=== PATIENT | female | born 1985 | race African-American/Black ===

== ENCOUNTER 2020-01-18 14:54 | Emergency (ER) | payer BC, SELFPAY ==
[2020-01-18 15:06] VITALS: BP 137/95; PULSE 116; RESP 16; TEMP 37.4; O2SAT 100
--- NOTE | 2020-01-18 15:16 | ED.SKABFB ---
HPI - Skin/Abscess/Foreign Bdy General Chief complaint: Skin/Abscess/Foreign Body Stated complaint: rash/left arm Time Seen by Provider: 01/18/20 15:10 Source: patient and RN notes reviewed Mode of arrival: ambulatory Limitations: no limitations History of Present Illness HPI narrative: Patient presents today complaining of a pruritic rash to the bilateral forearms x1 week. Symptoms have worsened over the past 2 days. States that prior to onset, she was working outside in the yard with her mother, but has no known contact to allergens or irritants. She has been using calamine lotion as well as hydrocortisone without relief. History of eczema. MD complaint: rash Related Data Home Medications Medication Instructions Recorded Confirmed albuterol sulfate INHALATION 01/18/20 budesonide-formoterol [Symbicort] INHALATION 01/18/20 losartan 01/18/20 Allergies Allergy/AdvReac Type Severity Reaction Status Date / Time No Known Allergies Allergy Unverified 05/28/18 11:12 Review of Systems Review of Systems: Narrative: CONSTITUTIONAL: Denies body aches, fever, chills, or sweats. EYES: Denies visual changes, redness, or discharge. ENT: Denies rhinorrhea, congestion, sore throat, or otalgia. CARDIOVASCULAR: Denies chest pain, palpitations, or edema. RESPIRATORY: Denies cough or dyspnea. GASTROINTESTINAL: Denies abdominal pain, nausea, vomiting, or diarrhea. GENITOURINARY: Denies dysuria or hematuria. SKIN: + Pruritic rash to bilateral forearms MUSCULOSKELETAL: Denies back pain, joint pain, or myalgia. NEUROLOGIC: Denies headache, numbness, tingling, or weakness. PSYCH: Denies depression or anxiety. [facility] Past Medical History Medical History (Updated 01/18/20 @ 15:19 by Mayra Mobley, [facility], ) Eczema Hypertension Family History Family History (Updated 05/01/18 @ 08:54 by DOCTOR UNKNOWN) Other Hypertension Social History Social History Smoking status: Never smoker Alcohol intake: current Comments At time of signature, I have reviewed and agree with nursing past medical, surgical, social and family history unless otherwise noted. Please see nursing chart for further information. There is no relevant family history pertinent to the presenting complaint Exam Narrative: Exam Narrative: GENERAL: Well-appearing, well-nourished, and in no acute distress. HEAD: Normocephalic, atraumatic. EYES: EOMI. No redness or drainage. Conjunctivae normal. ENT: Mucous membranes pink and moist. NECK: Normal AROM. Scant pinpoint papular rash to the right neck CHEST: No respiratory distress. EXTREMITIES: Normal range of motion. No edema. SKIN: Warm, dry. Capillary refill normal. Normal skin turgor. Coalescing pinpoint papular rash to the bilateral forearms with mild surrounding edema. No drainage or induration. NEURO: No focal deficits. Alert and oriented x3. Gait steady. PSYCH: Normal affect. No signs of depression or anxiety. Course Vital Signs Vital signs: Vital Signs Temperature 99.4 F 01/18/20 15:06 Pulse Rate 116 H 01/18/20 15:06 Respiratory Rate 16 01/18/20 15:06 Blood Pressure 137/95 H 01/18/20 15:06 Pulse Oximetry 100 01/18/20 15:06 Temperature 99.4 F 01/18/20 15:06 Pulse Rate 116 H 01/18/20 15:06 Respiratory Rate 16 01/18/20 15:06 Blood Pressure 137/95 H 01/18/20 15:06 Pulse Oximetry 100 01/18/20 15:06 Reviewed. Pt has been instructed to follow up with her PCP regarding her elevated blood pressure today. MDM - Skin/Abscess/Foreign Bdy Differential Diagnosis Differential diagnosis: Likely abscess of skin or subcutaneous tissue, urticaria, allergic reaction to drug, cellulitis, eczema, insect bites, impetigo and contact dermatitis Critical Care Time Critical Care Time Critical Care Time: No Discharge Plan Discharge Clinical Impression: Contact dermatitis Qualifiers: Contact dermatitis type: unspecified Contact dermatitis trigger: unspecified tr
== END 2020-01-18 15:24 | disposition home or self-care (01) ==
PROVIDERS: Emergency Provider Nurse Practitioner
DX: L25.9 Unspecified contact dermatitis, unspecified cause (principal); I10 Essential (primary) hypertension
CPT/HCPCS: 99213; G0463

== ENCOUNTER → 2020-12-05 01:04 | Outpatient (CLI) | payer BC, SELFPAY ==
[2020-12-05 19:43] LABS: SARS-CoV-2 RNA PCR Negative
== END ==
PROVIDERS: Anesthesiology; Visit Provider Obstetrics & Gynecology
DX: Z01.812 Encounter for preprocedural laboratory examination (principal); Z20.822 Contact with and (suspected) exposure to COVID-19
CPT/HCPCS: C9803; U0003; U0005

== ENCOUNTER 2020-12-08 00:43 | Day surgery (SDC) | payer BC, MEDICAID, SELFPAY ==
[2020-11-24 08:31] VITALS: BMI 52.1
[2020-12-08] VITALS (8 sets, daily range): BP systolic 134–160; BP diastolic 74–101; PULSE 79–100; RESP 16–20; TEMP 36.2–37.1; O2SAT 95–100
[2020-12-08] MEDS: ACETAMINOPHEN 500 MG TABLET 1000 MG PO (08:40)
--- NOTE | 2020-12-08 08:56 | WPDANESEPPF ---
Anes - Initial Pre Proc Eval Procedure: Operation Date: 12/08/20 10:30 Proposed Procedures p Laparoscopic Bilateral Salpingectomy, Right Oophorectomy, Hysteroscopy with Removal Intrauterine Device - Konstantin Botello MD Date/Time: 12/08/20 08:56 Surgeon: Konstantin Botello MD Pre Op Diagnosis: sterilization, IUD, dermoid tumor Patient Data Age: 35 Gender: F Height: 5 ft 7 in Weight: 151 kg Allergies Allergy/AdvReac Type Severity Reaction Status Date / Time No Known Allergies Allergy Verified 12/08/20 08:47 Home Medications Medication Instructions Recorded Confirmed Type losartan 100 mg PO DAILY 01/18/20 12/08/20 History Patient hx anesthesia problems: none Family hx anesthesia problems: none PMFSH Past Medical History Medical History (Updated 12/08/20 @ 08:59 by Albert Tavera MD) Eczema Hypertension Morbid obesity Surgical History Surgical History (Updated 12/08/20 @ 08:59 by Albert Tavera MD) H/O ileostomy H/O laparoscopy History of cholecystectomy History of reversal of ileostomy Family History Family History Other Hypertension Social History Social History Smoking status: Never smoker Alcohol intake: current Living arrangements: alone Gender identity (if verbalized by the patient): Female Spiritual care concerns: No Anes - Eval Final PreProcedure Day of Procedure 12/08/20 08:56 Patient weight: super morbidly obese Heart: regular rate and rhythm Lungs: clear to auscultation Airway: Mallampati scale class II Neurological: alert and oriented Last oral intake: >/= 8 hours ASA classification: III Emergent: no Anesthetic plan: proceed Anesthesia type and monitoring: general ETT and standard monitoring Informed Consent: The patient's anesthetic plan and its attendant risks and benefits were discussed with the patient/family/POA. Questions were solicited and answers provided to the satisfaction of the patient/family/POA.
[2020-12-08] MEDS: LACTATED RINGERS 1,000 ML 30 ML IV CONT (09:20)
[2020-12-08] MEDS: KETOROLAC 15 MG/ML VIAL (*BKC) IV PUSH (09:27)
--- NOTE | 2020-12-08 09:31 | WPDHPUPDATE1 ---
History and Physical Update Update Date/Time: 12/08/20 09:31 History and Physical has been reviewed, including an updated exam of the patient. There are NO changes in the patient's condition. Risks, benefits, and alternatives have been discussed and questions answered. Patient agrees to proceed with procedure.
--- NOTE | 2020-12-08 12:53 | PM.PROC ---
Procedure Note - Detailed Date of procedure: 12/08/20 Pre-op diagnosis: sterilization, IUD, dermoid tumor Malposition of the IUD, unwanted fertility, cystic teratoma, Post-op diagnosis: same (Intra-abdominal adhesions) Procedure performed: Adhesiolysis -1 hour, left ovarian cystectomy, right oophorectomy, left salpingectomy, hysteroscopic removal of IUD with D&C. Description of procedure: The patient was taken the operating room. She was prepped and draped in the dorsal lithotomy position after induction of general anesthesia. A 5 mm left upper quadrant incision was made in the abdominal skin with a scalpel. A 5 mm trocar was inserted the intra-abdominal cavity under direct visualization of the scope. A 11 mm left lower quadrant incision was made with the scalp on the abdominal skin and 11 mm trocar was inserted the intra-abdominal cavity under direct visualization of the scope. A 5 mm infraumbilical incision was made with scalpel and a 5 mm trocar was inserted into the intra-abdominal cavity under direct visualization of the scope. Adhesiolysis was performed to separate the omentum and small intestine from the anterior abdominal wall. This was done from the left upper quadrant to the left lower quadrant extending from the left side of the abdomen over to the umbilicus and to the right lower quadrant. Over an hour of adhesiolysis was performed. This was done the sharp and blunt dissection. Adhesions were removed between the colon and the fallopian tubes and ovaries. Adhesiolysis was performed around the left adnexa. The left fallopian tube was raised and the mesosalpinx was cauterized around the fallopian tube and extending medially to the cornua. The fallopian tube was cauterized transected. An adhesion was noted between the rectum and the right ovary. This had the appearance of a diverticulum to some degree. Dr. Doshi offered an intraoperative consult. He was comfortable with having this adhesion lysed at the lower area of the ovary. This was performed using LigaSure cautery. The cut surface of the adhesion was examined. No lumen was present. The infundibulopelvic ligament was then cauterized and transected. The para ovarian tissue was cauterized and transected. The round ligament and suspensory ligament ovaries were both cauterized and transected. Adhesions between the ovary and the right pelvic sidewall were transected as well the ovary was placed in endobag and taken at the left lower quadrant trocar site and small pieces. Left ovarian cystectomy was also performed using sharp and blunt dissection.The pelvis was irrigated with copious amounts of normal saline. The pneumoperitoneum was reduced. The trocars were removed. Skin was closed with subcuticular 4 Monocryl cover Dermabond. Hysteroscopy was then performed. Speculum was placed in vagina. The cervix grasped with tenaculum. The hysteroscope was inserted the intrauterine cavity and the above findings were noted. The IUD string was grasped with a hysteroscopic grasper and the IUD was removed. It was removed with little resistance. A D&C was then performed of the small curette. The sample was collected and sent to the pathology department. The patient tolerated procedure well. Speculum tenaculum were removed. The patient 2nd cover room stable condition. Anesthesia: GETA Surgeon: Konstantin Botello MD Estimated blood loss (mL): 100 Drains: No Packing: No Complications: No immediate complications Condition: stable Disposition: PACU Findings: Intra-abdominal adhesions throughout the abdomen. The omentum and small intestine was adherent to the anterior abdominal wall throughout the pelvis. These adhesions were fine with Penilla adhesions that were easily broken down. There were adhesions between the rectum/sigmoid colon and the left and right adnexa. There was a 6-7 cm right ovarian mass. There were 2 cysts on the left ovary. One was a corpus luteum cyst. The other 1 was dissected open an
--- NOTE | 2020-12-08 13:53 | SUR.PHASEI ---
1233 i Tru Turner RN charted under Neyda Ospina RN until patient met criteria for outpatient recovery.
== END 2020-12-08 14:35 | disposition home or self-care (01) ==
PROVIDERS: PCP Internal Medicine; Visit Provider Obstetrics & Gynecology
PROC: 0UDB8ZZ Extraction of Endometrium, Via Natural or Artificial Opening Endoscopic (ICD-10-PCS; CPT 58558; principal; 2020-12-08 10:30)
DX: Z30.2 Encounter for sterilization (principal); Z30.432 Encounter for removal of intrauterine contraceptive device; D27.0 Benign neoplasm of right ovary; N83.02 Follicular cyst of left ovary; N73.6 Female pelvic peritoneal adhesions (postinfective); I10 Essential (primary) hypertension; E66.01 Morbid (severe) obesity due to excess calories; Z68.43 Body mass index [BMI] 50.0-59.9, adult
CPT/HCPCS: 58661; 58662; 58301; 58558; 88300; 88302; 88304; 88305; A9270; C9803; J1100; J1170; J1885; J2250; J2405; J2704; J3010; J7030; J7120; U0003; U0005